=== PATIENT | male | born 1985 | race Caucasian/White ===

== ENCOUNTER 2020-05-24 14:52 | Emergency (ER) | payer OTHER ==
[~2020-05-24] VITALS: Ht 180.3 cm; Wt 84.4 kg
[2020-05-24] MEDS ORDERED: ALPRAZOLAM 0.50.5 MG PO (16:11)
[2020-05-24 16:26] VITALS: BP 121/67
== END 2020-05-24 16:28 | disposition home or self-care (01) ==
LOC: M.ERS 14:52
DX: F41.9 Anxiety disorder, unspecified (principal)

== ENCOUNTER 2020-05-29 20:06 | Emergency (ER) | payer OTHER ==
[~2020-05-29] VITALS: Ht 180.3 cm; Wt 90.7 kg
[~2020-05-29 20:06] MED LIST: ALPRAZOLAM 0.50.5 MG PO
[2020-05-29] MEDS ORDERED: BUSPIRONE HCL15 MG PO (21:07)
[2020-05-29] MEDS ORDERED: HYDROXYZINE HCL25 M2 PO (21:07)
[2020-05-29 21:21] VITALS: BP 126/76
== END 2020-05-29 21:21 | disposition home or self-care (01) ==
LOC: M.ERS 20:06
DX: F41.9 Anxiety disorder, unspecified (principal)